=== PATIENT | male | born 1980 | race Caucasian/White ===

== ENCOUNTER 2019-06-06 16:50 | Emergency (ER) | payer OTHER ==
[~2019-06-06] VITALS: Ht 172.7 cm; Wt 63.5 kg
[2019-06-06 16:51] VITALS: BP 128/62
[2019-06-06] MEDS ORDERED: CYCLOBENZAPRINE5 MG PO (18:31)
== END 2019-06-06 18:35 | disposition home or self-care (01) ==
LOC: ER 16:50
DX: M54.6 Pain in thoracic spine (principal); M54.5 Low back pain; V89.2XXA Person injured in unspecified motor-vehicle accident, traffic, initial encounter; Y93.89 Activity, other specified; Y92.488 Other paved roadways as the place of occurrence of the external cause; Y99.8 Other external cause status